=== PATIENT | female | born 1960 | race Caucasian/White ===

== ENCOUNTER 2017-07-23 13:07 | Inpatient (IN) | payer OTHER ==
[2017-07-23] MEDS ORDERED: methylPREDNISolone SOD SUCCI 125 MG/2 ML VIAL IV STA (13:32)
[2017-07-23] MEDS ORDERED: IPRATROPIUM-ALBUTEROL 3 ML NEB INHALATION STA (13:32)
--- NOTE | 2017-07-23 13:34 | ED ---
General Adult HPI - General Chief complaint: Shortness of Breath Stated complaint: congestion/SOB Time Seen by Provider: 07/23/17 13:27 Source: patient, RN notes reviewed Mode of arrival: wheelchair Limitations: no limitations - History of Present Illness Initial comments: Patient is a pleasant 57-year-old female presenting to the emergency Department with cough and difficulty breathing. Symptoms have been present over the past week. Patient does have chronic COPD as well. Patient does have a cough and has had productive yellow sputum however that has dried up. Patient does have congestion still. Patient has nasal congestion as well. Patient did have low- grade fever a few days ago. No leg pain or leg swelling. No chest pain - Related Data Home Medications Medication Instructions Recorded Confirmed Albuterol Nebulized [Ventolin 1 inh INHALATION DAILY 07/23/17 07/23/17 Nebulized] Budesonide-Formot 160-4.5 Mcg 1 puff INHALATION DAILY 07/23/17 07/23/17 [Symbicort 160-4.5 Mcg Inhaler] Montelukast [Singulair] 1 tab PO DAILY 07/23/17 07/23/17 Allergies Allergy/AdvReac Type Severity Reaction Status Date / Time No Known Allergies Allergy Verified 07/23/17 13:09 Review of Systems ROS Statement: Those systems with pertinent positive or pertinent negative responses have been documented in the HPI. ROS Other: All systems not noted in ROS Statement are negative. Constitutional: Reports: fever Eyes: Denies: eye pain ENT: Reports: congestion. Denies: ear pain Respiratory: Reports: cough, dyspnea Cardiovascular: Denies: chest pain Endocrine: Denies: fatigue Gastrointestinal: Denies: abdominal pain Genitourinary: Denies: dysuria Musculoskeletal: Denies: back pain Skin: Denies: rash Neurological: Denies: weakness Past Medical History Past Medical History: COPD History of Any Multi-Drug Resistant Organisms: None Reported Past Surgical History: Breast Surgery, Tonsillectomy, Tubal Ligation Past Psychological History: No Psychological Hx Reported Smoking Status: Current some day smoker Past Alcohol Use History: Rare Past Drug Use History: None Reported General Exam Limitations: no limitations General appearance: alert Head exam: Present: atraumatic Eye exam: Present: normal appearance, PERRL ENT exam: Present: normal oropharynx Neck exam: Present: normal inspection Respiratory exam: Present: wheezes Cardiovascular Exam: Present: regular rate, normal rhythm GI/Abdominal exam: Present: soft. Absent: tenderness Extremities exam: Present: normal inspection. Absent: pedal edema, calf tenderness Neurological exam: Present: alert Psychiatric exam: Present: normal affect, normal mood Skin exam: Present: normal color Course Vital Signs 07/23/17 07/23/17 07/23/17 13:09 13:37 13:46 Temperature 98.2 F Pulse Rate 84 88 84 Respiratory 20 Rate Blood Pressure 125/87 O2 Sat by Pulse 85 L Oximetry - Reevaluation(s) Reevaluation #1: 07/23/17 13:45 Patient states she no longer sees Dr. Marmolejo. Patient states her pulmonary now is Dr. Thorpe's. EKG Findings - EKG Comments: EKG Findings:: Normal sinus rhythm at 71. UT 1:30. QRS 84. QT 400. QTc 434. Right axis. Low QRS voltage. No acute ST change. Medical Decision Making - Medical Decision Making Patient reexamined and slightly improved. Patient is updated on results and plan. Dr. Mcfarland has been paged for admission. Patient does not meet Sirs criteria and does not meet criteria for sepsis on admission. - Lab Data Result diagrams: 07/23/17 13:50 07/23/17 13:50 Lab Results 07/23/17 07/23/17 07/23/17 Range/Units 13:50 13:50 13:50 WBC 9.7 (3.8-10.6) k/uL RBC 4.59 (3.80-5.40) m/uL Hgb 14.1 (11.4-16.0) gm/dL Hct 45.0 (34.0-46.0) % MCV 98.1 (80.0-100.0) fL MCH 30.7 (25.0-35.0) pg MCHC 31.3 (31.0-37.0) g/dL RDW 14.1 (11.5-15.5) % Plt Count 277 (150-450) k/uL Neutrophils % 92 % Lymphocytes % 6 % Monocytes % 1 % Eosinophils % 0 % Basophils % 0 % Neutrophils # 8.9 H (1.3-7.7) k/uL Lymphocytes # 0.5 L (1.0-4.8) k/uL Monocytes # 0.1 (0-1.0) k/uL Eosinophils # 0.0 (0-0.7) k/uL Basophils # 0.0 (0-0.2) k/uL PT 10.6 (9.0-12.0) sec INR 1.0 (<1.2) APTT 23.8 (22.0-30.0) sec Sodium 136 L (137-145) mmol/L Potassium 4.4 (3.5-5.1) mmol/L Chloride 99 (98-107) mmol/L Carbon Dioxide 31 H (22-30) mmol/L Anion Gap 6 mmol/L BUN 14 (7-17) mg/dL Creatinine 0.48 L (0.52-1.04) mg/dL Est GFR (MDRD) Af Amer >60 (>60 ml/min/1.73 sqM) Est GFR (MDRD) Non-Af >60 (>60 ml/min/1.73 sqM) Glucose 148 H (74-99) mg/dL Calcium 9.1 (8.4-10.2) mg/dL Total Bilirubin 0.2 (0.2-1.3) mg/dL AST 19 (14-36) U/L ALT 33 (9-52) U/L Alkaline Phosphatase 91 (38-126) U/L Total Protein 7.0 (6.3-8.2) g/dL Albumin 3.7 (3.5-5.0) g/dL - Radiology Data Radiology results: image reviewed (Chest x-ray does show patchy right lower lobe infiltrate.) Disposition Clinical Impression: Acute exacerbation of chronic obstructive airways disease, Pneumonia Disposition: ADMITTED IP TO THIS [facility] Referrals: Booker Pierson DO [Primary Care Provider] - 1-2 days Decision Time: 14:28
[2017-07-23 14:08] LABS: Basophils % (A) 0 %; CH 30.6; CHCM 31.4; Eosinophils % (A) 0 %; HDW 2.21; HGB 14.1 gm/dL (11.4-16.0); Luc # (Auto) 0.09; Luc % (Auto) 1; Lymphocytes # (A) 0.5 k/uL (1.0-4.8); Lymphocytes % (A) 6 %; MCH 30.7 pg (25.0-35.0); MCHC 31.3 g/dL (31.0-37.0); MCV 98.1 fL (80.0-100.0); Mean Platelet Volume 7.5; Monocytes # (A) 0.1 k/uL (0-1.0); Monocytes % (A) 1 %; Neutrophils # (A) 8.9 k/uL (1.3-7.7); Neutrophils % (A) 92 %; RBC 4.59 m/uL (3.80-5.40); RDW 14.1 % (11.5-15.5); WBC 9.7 k/uL (3.8-10.6); WBC (Perox) 10.27
[2017-07-23 14:17] LABS: Partial Thromboplastin Time 23.8 sec (22.0-30.0); Prothrombin Time 10.6 sec (9.0-12.0)
[2017-07-23 14:19] LABS: ALT 33 U/L (9-52); AST 19 U/L (14-36); Alkaline Phosphatase 91 U/L (38-126); Anion Gap 6 mmol/L; Blood Urea Nitrogen 14 mg/dL (7-17); Calcium 9.1 mg/dL (8.4-10.2); Carbon Dioxide 31 mmol/L (22-30); Chloride 99 mmol/L (98-107); Glucose 148 mg/dL (74-99); Non-African American GFR(MDRD) >60 (>60 ml/min/1.73 sqM); Potassium 4.4 mmol/L (3.5-5.1); Sodium 136 mmol/L (137-145); Total Bilirubin 0.2 mg/dL (0.2-1.3)
--- NOTE | 2017-07-23 14:22 | XR ---
EXAMINATION TYPE: XR chest 2V DATE OF EXAM: 07/23/2017 COMPARISON: NONE HISTORY: Shortness of breath TECHNIQUE: Frontal and lateral views of the chest are obtained. FINDINGS: Scattered senescent parenchymal changes noted. Hyperinflation compatible with COPD. Patchy right lower lobe infiltrate. Small bilateral pleural effusions. Heart size is stable. Pulmonary venous congestion without overt failure. Mediastinal structures are stable and grossly unremarkable. No evidence for hilar prominence. Degenerative changes dorsal spine. IMPRESSION: 1. Patchy right lower lobe infiltrate. Small bilateral pleural effusions.
[2017-07-23] MEDS ORDERED: PNEUMONIA PROTOCOL UTILIZED 1 EACH MISC PO PRN (14:28)
[2017-07-23] MEDS ORDERED: cefTRIAXone IN SWFI 1,000 MG/10 ML SYRINGE IVP STA (14:28)
[2017-07-23] MEDS ORDERED: AZITHROMYCIN 500 MG in SODIUM CHLORIDE 0.9% 250 ML IVPB STA (14:28)
[2017-07-23 14:30] LABS: Creatine Kinase 33 U/L (30-135)
[2017-07-23 14:44] LABS: Creatine Kinase MB 1.2 ng/mL (0.0-2.4); Troponin I <0.012 ng/mL (0.000-0.034)
[2017-07-23] MEDS: SODIUM CHLORIDE 0.9% 1,000 ML IV SCH (15:00)
[2017-07-23] MEDS: IPRATROPIUM-ALBUTEROL 3 ML NEB INHALATION SCH ×2 (15:09→21:27)
[2017-07-23 17:21] LABS: Glucose,Whole Blood 201 mg/dL (75-99)
[2017-07-23] MEDS: INSULIN LISPRO (humaLOG) 300 UNIT/3 ML VIAL SQ SCH ×2 (17:27→20:43)
[2017-07-23] MEDS: methylPREDNISolone SOD SUCCI 125 MG/2 ML VIAL IV SCH ×2 (17:27→23:13)
[2017-07-23] MEDS: HEPARIN SODIUM,PORCINE 5,000 UNIT/ML 1 ML VIAL SQ SCH (20:44)
[2017-07-23 20:45] LABS: Glucose,Whole Blood 118 mg/dL (75-99)
[2017-07-23] MEDS: MONTELUKAST 10 MG TAB PO SCH (20:45)
--- NOTE | 2017-07-23 21:46 | P.HPIM ---
History of Present Illness H&P Date: 07/23/17 Chief Complaint: Shortness of breath Patient is a 57-year-old female with a known history of COPD and active smoking trying to quit presenting to the emergency Department with cough and difficulty breathing. Symptoms have been present over the past week. Patient went to her primary care physician and was placed on antibiotics and prednisone since last Sunday. The garcía did not feel better. Patient went to her PCPs office today and was told to come to hospital due to worsening short of breath. Patient does have a cough and has had productive yellow sputum however that has dried up. Patient has nasal congestion as well. Patient did have low-grade fever a few days ago. No leg pain or leg swelling. No chest pain. Patient's chest x-ray showed right lower lobe infiltrate. Review of Systems Constitutional: Patient denies any fever or chills . generalized weakness and no weight loss. Abdomen: Patient denied nausea vomiting and diarrhea and abdominal pain. Cardiovascular: Patient denies any chest pain . no palpitations. Respiratory: Patient does have cough is from production and shortness of breath.. Neurologic: Patient denied any numbness or tingling headache. Musculoskeletal: Patient denies any complaints of joint swelling or deformity. Skin: Negative Psychiatric: Negative Endocrine: No heat or cold intolerance. No recent weight gain. Genitourinary: No dysuria or hematuria. All other 14 point ROS negative except the above Past Medical History Past Medical History: COPD History of Any Multi-Drug Resistant Organisms: None Reported Past Surgical History: Breast Surgery, Tonsillectomy, Tubal Ligation Past Psychological History: No Psychological Hx Reported Smoking Status: Current some day smoker Past Alcohol Use History: Rare Past Drug Use History: None Reported - Past Family History Mother Family Medical History: Osteoarthritis (OA) Father Family Medical History: Cancer, Congestive Heart Failure (CHF), Hypertension Additional Family Medical History / Comment(s): stomach cancer, Medications and Allergies Home Medications Medication Instructions Recorded Confirmed Type Azithromycin [Zithromax Z-pack] See Taper PO DAILY 07/23/17 07/23/17 History Budesonide-Formot 160-4.5 Mcg 2 puff INHALATION RT-BID 07/23/17 07/23/17 History [Symbicort 160-4.5 Mcg Inhaler] Ipratropium-Albuterol Nebulize 3 ml PO RT-QID 07/23/17 07/23/17 History [Duoneb 0.5 mg-3 mg/3 ml Soln] Montelukast [Singulair] 10 mg PO HS 07/23/17 07/23/17 History Umeclidinium [place] [Incruse 1 puff INHALATION RT-DAILY 07/23/17 07/23/17 History Ellipta] predniSONE See Taper PO DAILY 07/23/17 07/23/17 History Allergies Allergy/AdvReac Type Severity Reaction Status Date / Time No Known Allergies Allergy Verified 07/23/17 14:28 Physical Exam Vitals: Vital Signs Temp Pulse Resp BP Pulse Ox 07/23/17 15:09 68 07/23/17 14:56 98.7 F 71 16 122/73 92 L 07/23/17 13:46 84 07/23/17 13:37 88 07/23/17 13:09 98.2 F 84 20 125/87 85 L Intake and Output 07/23/17 07/23/17 07/23/17 06:59 14:59 22:59 Other: Weight 72.575 kg Patient Weight 07/24/17 06:59 Weight 72.575 kg PHYSICAL EXAMINATION: Patient is lying in the bed comfortably, no acute distress, awake alert and oriented.. HEENT: Normocephalic. Neck is supple. Pupils reactive. Nostrils clear. Oral cavity is moist. Ears reveal no drainage. Neck reveals no JVD, carotid bruits, or thyromegaly. CHEST EXAMINATION: Trachea is central. Symmetrical expansion. Bilateral diffuse rhonchi and wheezing positive CARDIAC: Normal S1, S2 with no gallops. No murmurs ABDOMEN: Soft. Bowel sounds normal. No organomegaly. No abdominal bruits. Extremities: reveal no edema. No clubbing or cyanosis Neurologically awake, alert, oriented x3 with well-coordinated movements. No focal deficits noted Skin: No rash or skin lesions. Psychiatric: Cooperative. Nonsuicidal Musculoskeletal: No joint swelling or deformity. Normal range of motion. Results CBC & Chem 7: 07/23/17 13:50 07/23/17 13:50 Labs: Abnormal Lab Results - Last 24 Hours (Table) 07/23/17 07/23/17 Range/Units 13:50 13:50 Neutrophils # 8.9 H (1.3-7.7) k/uL Lymphocytes # 0.5 L (1.0-4.8) k/uL Sodium 136 L (137-145) mmol/L Carbon Dioxide 31 H (22-30) mmol/L Creatinine 0.48 L (0.52-1.04) mg/dL Glucose 148 H (74-99) mg/dL Thrombosis Risk Factor Assmnt - DVT/VTE Prophylaxis DVT/VTE Prophylaxis: Pharmacologic Prophylaxis ordered Assessment and Plan Assessment: #1 acute COPD exacerbation #2 right lower lobe pneumonia failed outpatient therapy #3 active smoking DVT prophylaxis Plan: Patient will be continued on antibiotics ceftriaxone and azithromycin. We will continue the steroids and breathing treatments and follow closely. Further recommendations based on the clinical course.
[2017-07-24] MEDS: SODIUM CHLORIDE 0.9% 1,000 ML IV SCH ×3 (04:34→20:15)
[2017-07-24] MEDS: methylPREDNISolone SOD SUCCI 125 MG/2 ML VIAL IV SCH ×4 (05:56→22:58)
[2017-07-24] MEDS: IPRATROPIUM-ALBUTEROL 3 ML NEB INHALATION SCH ×4 (07:13→19:29)
[2017-07-24 07:39] LABS: Glucose,Whole Blood 118 mg/dL (75-99)
[2017-07-24] MEDS ORDERED: NON-FORMULARY DRUG (Umeclidinium Bromide [Incruse Ellipta] 1 PUFF) INHALATION SCH (08:00)
[2017-07-24] MEDS: AZITHROMYCIN 500 MG TAB PO SCH (08:02)
[2017-07-24] MEDS: cefTRIAXone IN SWFI 1,000 MG/10 ML SYRINGE IVP SCH (08:02)
[2017-07-24] MEDS: INSULIN LISPRO (humaLOG) 300 UNIT/3 ML VIAL SQ SCH ×4 (08:02→20:05)
[2017-07-24] MEDS: HEPARIN SODIUM,PORCINE 5,000 UNIT/ML 1 ML VIAL SQ SCH ×3 (08:03→22:59)
--- NOTE | 2017-07-24 08:04 | XR ---
EXAMINATION TYPE: XR chest 2V DATE OF EXAM: 07/24/2017 COMPARISON: 07/23/2017 HISTORY: 57-year-old female with and shortness of breath, pneumonia TECHNIQUE: Frontal and lateral views FINDINGS: Heart is normal size. Aorta and pulmonary vasculature within normal limits. There is worsening airspa ce disease in the basilar left lower lobe. No significant pleural effusion. IMPRESSION: Worsening basilar right lower lobe pneumonia.
[2017-07-24 08:26] LABS: Basophils % (A) 0 %; CH 30.8; CHCM 30.6; Eosinophils % (A) 0 %; HCT 44.5 % (34.0-46.0); HDW 2.18; HGB 13.8 gm/dL (11.4-16.0); Hypochromasia Slight; Luc # (Auto) 0.09; Luc % (Auto) 1; Lymphocytes # (A) 0.8 k/uL (1.0-4.8); Lymphocytes % (A) 12 %; MCH 31.3 pg (25.0-35.0); Macrocytosis Slight; Mean Platelet Volume 7.6; Monocytes # (A) 0.2 k/uL (0-1.0); Monocytes % (A) 3 %; Neutrophils # (A) 5.8 k/uL (1.3-7.7); Neutrophils % (A) 84 %; RBC 4.41 m/uL (3.80-5.40); RDW 14.5 % (11.5-15.5); WBC 6.9 k/uL (3.8-10.6); WBC (Perox) 6.84
[2017-07-24 08:47] LABS: Anion Gap 5 mmol/L; Blood Urea Nitrogen 12 mg/dL (7-17); Calcium 8.9 mg/dL (8.4-10.2); Carbon Dioxide 34 mmol/L (22-30); Chloride 101 mmol/L (98-107); Glucose 128 mg/dL (74-99); Non-African American GFR(MDRD) >60 (>60 ml/min/1.73 sqM); Potassium 5.1 mmol/L (3.5-5.1); Sodium 140 mmol/L (137-145)
--- NOTE | 2017-07-24 10:51 | P.CNPUL ---
History of Present Illness Consult date: 07/24/17 Reason for consult: dyspnea, cough Chief complaint: Cough, shortness of breath History of present illness: This is a 57-year-old female who is known to [facility]. The patient states she has shortness of breath and coughing which began several days ago. The patient states her mom was sick with a cold. She states she was producing a copious amount of phlegm however, now it is only when she lays down flat. She is complaining of sinus congestion. She denies fevers at home. She does state that she gets hot occasionally. She is complaining of feeling very short of breath. She is a current smoker. She smokes less than a half a pack per day. She does wear oxygen at night. She was using Symbicort, Incruse, duo nebs , Ventolin, Singulair at home. Review of Systems All systems: negative Past Medical History Past Medical History: COPD Additional Past Medical History / Comment(s): hiatal hernia History of Any Multi-Drug Resistant Organisms: None Reported Past Surgical History: Breast Surgery, Tonsillectomy, Tubal Ligation Additional Past Surgical History / Comment(s): breast augmentation, colonoscopy/ polypectomt-benign Past Anesthesia/Blood Transfusion Reactions: No Reported Reaction Past Psychological History: No Psychological Hx Reported Smoking Status: Current some day smoker Past Alcohol Use History: Rare Past Drug Use History: None Reported - Past Family History Mother Family Medical History: Osteoarthritis (OA) Father Family Medical History: Cancer, Congestive Heart Failure (CHF), Hypertension Additional Family Medical History / Comment(s): stomach cancer, Medications and Allergies Home Medications Medication Instructions Recorded Confirmed Type Azithromycin [Zithromax Z-pack] See Taper PO DAILY 07/23/17 07/23/17 History Budesonide-Formot 160-4.5 Mcg 2 puff INHALATION RT-BID 07/23/17 07/23/17 History [Symbicort 160-4.5 Mcg Inhaler] Ipratropium-Albuterol Nebulize 3 ml PO RT-QID 07/23/17 07/23/17 History [Duoneb 0.5 mg-3 mg/3 ml Soln] Montelukast [Singulair] 10 mg PO HS 07/23/17 07/23/17 History Umeclidinium [place] [Incruse 1 puff INHALATION RT-DAILY 07/23/17 07/23/17 History Ellipta] predniSONE See Taper PO DAILY 07/23/17 07/23/17 History Allergies Allergy/AdvReac Type Severity Reaction Status Date / Time No Known Allergies Allergy Verified 07/23/17 14:28 Physical Exam Osteopathic Statement: *. No significant issues noted on an osteopathic structural exam other than those noted in the History and Physical/Consult. Vitals: Vital Signs Temp Pulse Pulse Resp BP BP BP 07/24/17 07:24 64 07/24/17 07:14 60 07/24/17 07:00 97.7 F 61 16 119/68 07/23/17 23:00 97.1 F L 66 18 106/67 07/23/17 21:37 76 07/23/17 21:27 72 07/23/17 15:28 72 07/23/17 15:09 68 07/23/17 14:56 98.7 F 71 16 122/73 07/23/17 13:46 84 07/23/17 13:37 88 07/23/17 13:09 98.2 F 84 20 125/87 Pulse Ox 07/24/17 07:24 07/24/17 07:14 07/24/17 07:00 90 L 07/23/17 23:00 90 L 07/23/17 21:37 07/23/17 21:27 07/23/17 15:28 07/23/17 15:09 07/23/17 14:56 92 L 07/23/17 13:46 07/23/17 13:37 07/23/17 13:09 85 L Intake and Output 07/23/17 07/24/17 07/24/17 22:59 06:59 14:59 Other: Voiding Method Toilet # Voids 1 1 Gen.: Patient is alert and oriented 3, no acute distress Cardiovascular: Regular rate and rhythm, S1/S2 Lungs: Coarse breath sounds bilaterally with diffuse expiratory wheezing Abdomen: Soft nontender nondistended positive bowel sounds Extremities: No edema Results - Laboratory Findings CBC and BMP: 07/24/17 07:36 07/24/17 07:36 PT/INR, D-dimer PT 10.6 sec (9.0-12.0) 07/23/17 13:50 INR 1.0 (<1.2) 07/23/17 13:50 Abnormal lab findings: Abnormal Labs 07/23/17 07/23/17 07/23/17 13:50 13:50 17:19 MCV Neutrophils # 8.9 H Lymphocytes # 0.5 L Sodium 136 L Carbon Dioxide 31 H Creatinine 0.48 L Glucose 148 H POC Glucose (mg/dL) 201 H 07/23/17 07/24/17 07/24/17 20:42 07:29 07:36 MCV 101.0 H Neutrophils # Lymphocytes # 0.8 L Sodium Carbon Dioxide Creatinine Glucose POC Glucose (mg/dL) 118 H 118 H 07/24/17 07:36 MCV Neutrophils # Lymphocytes # Sodium Carbon Dioxide 34 H Creatinine 0.48 L Glucose 128 H POC Glucose (mg/dL) - Diagnostic Findings Chest x-ray: report reviewed, image reviewed Assessment and Plan Assessment: Acute on chronic hypoxic respiratory failure Acute exacerbation of COPD, very severe Right lower lobe community-acquired pneumonia Active tobacco abuse Hyperglycemia Chronic cor pulmonale Obesity Diastolic CHF Pulmonary hypertension O2 to maintain saturation greater than or equal to 90% IV Solu-Medrol Antibiotics: Azithromycin and Rocephin Duo nebs Pulmicort Sputum culture Check influenza, Legionella, mycoplasma Smoking cessation is highly recommended Insulin sliding scale Gentle hydration Flonase Mucinex Singulair Incentive spirometry and pulmonary hygiene GI and DVT prophylaxis Thank you for this consultation we'll continue to follow along
[2017-07-24 11:59] LABS: Glucose,Whole Blood 98 mg/dL (75-99)
[2017-07-24 17:20] LABS: Glucose,Whole Blood 128 mg/dL (75-99)
[2017-07-24] MEDS: BUDESONIDE 0.5 MG/2 ML NEBU INHALATION SCH (19:29)
[2017-07-24] MEDS: MONTELUKAST 10 MG TAB PO SCH (20:05)
[2017-07-24] MEDS: FLUTICASONE 50MCG/SPRAY NASAL 16GM EA NOSTRIL SCH (20:08)
[2017-07-24] MEDS: guaiFENesin 600 MG TABLET.ER PO SCH (20:08)
[2017-07-24 20:22] LABS: Glucose,Whole Blood 157 mg/dL (75-99)
[2017-07-25] MEDS: IPRATROPIUM-ALBUTEROL 3 ML NEB INHALATION PRN ×2 (03:35→23:41)
[2017-07-25 05:26] LABS: Mycoplasma IgG Antibody (EIA) 1.38 INDEX (<=0.90); Mycoplasma IgM Antibody 0.54 INDEX (<=0.90)
[2017-07-25] MEDS: methylPREDNISolone SOD SUCCI 125 MG/2 ML VIAL IV SCH ×4 (05:30→23:29)
[2017-07-25] MEDS: SODIUM CHLORIDE 0.9% 1,000 ML IV SCH ×2 (05:31→17:20)
[2017-07-25 07:04] LABS: Glucose,Whole Blood 117 mg/dL (75-99)
[2017-07-25] MEDS: IPRATROPIUM-ALBUTEROL 3 ML NEB INHALATION SCH ×4 (07:17→19:37)
[2017-07-25] MEDS: BUDESONIDE 0.5 MG/2 ML NEBU INHALATION SCH ×2 (07:17→19:37)
[2017-07-25] MEDS: INSULIN LISPRO (humaLOG) 300 UNIT/3 ML VIAL SQ SCH ×2 (07:48→12:33)
[2017-07-25] MEDS: AZITHROMYCIN 500 MG TAB PO SCH (08:05)
[2017-07-25] MEDS: cefTRIAXone IN SWFI 1,000 MG/10 ML SYRINGE IVP SCH (08:05)
[2017-07-25] MEDS: FAMOTIDINE 20 MG TAB PO SCH (08:05)
[2017-07-25] MEDS: guaiFENesin 600 MG TABLET.ER PO SCH ×2 (08:05→20:48)
[2017-07-25] MEDS: HEPARIN SODIUM,PORCINE 5,000 UNIT/ML 1 ML VIAL SQ SCH ×3 (08:06→23:29)
[2017-07-25] MEDS ORDERED: FLUTICASONE 50MCG/SPRAY NASAL 16GM EA NOSTRIL SCH (09:00)
--- NOTE | 2017-07-25 10:16 | P.PN ---
Subjective Progress Note Date: 07/25/17 Principal diagnosis: CAP, AECOPD Patient seen and examined. Patient states she is still not feeling better. She still having shortness of breath. She states she is having trouble breathing especially with exertion. She is coughing up some phlegm. She denies fevers and chills. Objective - Vital Signs Vital signs: Vital Signs Temp 96.9 F L 07/25/17 07:00 Pulse 60 07/25/17 07:33 Resp 18 07/25/17 07:00 BP 131/73 07/25/17 07:00 Pulse Ox 92 L 07/25/17 07:05 Intake & Output 07/24/17 07/25/17 07/25/17 18:59 06:59 18:59 Other: Voiding Method Toilet # Voids 8 3 # Bowel Movements 1 - Exam Gen.: Patient is alert and oriented 3, no acute distress Cardiovascular: Regular rate and rhythm, S1/S2 Lungs: Coarse breath sounds bilaterally with diffuse expiratory wheezing Abdomen: Soft nontender nondistended positive bowel sounds Extremities: No edema - Labs CBC & Chem 7: 07/24/17 07:36 07/24/17 07:36 Labs: Abnormal Lab Results - Last 24 Hours (Table) 07/24/17 07/24/17 07/24/17 Range/Units 07:36 07:36 17:18 POC Glucose (mg/dL) 128 H (75-99) mg/dL Hemoglobin A1c 6.5 H (4.0-6.0) % Mycoplasma pneumon IgG 1.38 H (<=0.90) INDEX 07/24/17 07/25/17 Range/Units 20:04 06:43 POC Glucose (mg/dL) 157 H 117 H (75-99) mg/dL Hemoglobin A1c (4.0-6.0) % Mycoplasma pneumon IgG (<=0.90) INDEX Microbiology - Last 24 Hours (Table) 07/23/17 13:50 Blood Culture - Preliminary Blood No Growth after 24 hours Assessment and Plan Assessment: Acute on chronic hypoxic respiratory failure Acute exacerbation of COPD, very severe Right lower lobe community-acquired pneumonia Active tobacco abuse Hyperglycemia Chronic cor pulmonale Obesity Diastolic CHF Pulmonary hypertension O2 to maintain saturation greater than or equal to 90% IV Solu-Medrol Antibiotics: Azithromycin and Rocephin Duo nebs Pulmicort Sputum culture pending Pending Legionella, mycoplasma Influenza negative Smoking cessation is highly recommended Insulin sliding scale Gentle hydration Repeat CXR in AM Flutter tx Flonase Mucinex Singulair Incentive spirometry and pulmonary hygiene GI and DVT prophylaxis
[2017-07-25 12:31] LABS: Glucose,Whole Blood 92 mg/dL (75-99)
[2017-07-25 17:05] LABS: Glucose,Whole Blood 154 mg/dL (75-99)
[2017-07-25 17:23] LABS: Glucose,Whole Blood 135 mg/dL (75-99)
[2017-07-25] MEDS: INSULIN ASPART 100 UNIT/ML 1 ML 10 ML VIAL SQ SCH ×2 (17:26→20:48)
--- NOTE | 2017-07-25 17:51 | P.PN ---
Subjective Progress Note Date: 07/25/17 Progress note being dictated for Dr. Rudd Interval history:Patient is a 57-year-old female with a known history of COPD and active smoking trying to quit presenting to the emergency Department with cough and difficulty breathing. Symptoms have been present over the past week. Patient went to her primary care physician and was placed on antibiotics and prednisone since last Sunday. The garcía did not feel better. Patient went to her PCPs office today and was told to come to hospital due to worsening short of breath. Patient does have a cough and has had productive yellow sputum however that has dried up. Patient has nasal congestion as well. Patient did have low-grade fever a few days ago. No leg pain or leg swelling. No chest pain. Patient's chest x-ray showed right lower lobe infiltrate. 07/25/2017 P breathing slowly improved, loose nonproductive cough, occasional production of yellow sputum. Complains of exertional shortness of breath, uses bedside commode.Flutter valve ordered. Afebrile.Influenza negative. Objective - Vital Signs Vital signs: Vital Signs Temp 96.6 F L 07/25/17 15:00 Pulse 68 07/25/17 15:48 Resp 18 07/25/17 15:00 BP 125/70 07/25/17 15:00 Pulse Ox 96 07/25/17 15:00 Intake & Output 07/24/17 07/25/17 07/25/17 18:59 06:59 18:59 Other: Voiding Method Toilet # Voids 8 3 2 # Bowel Movements 1 1 - Exam Patient is lying in the bed comfortably, no acute distress, awake alert and oriented.. HEENT: Normocephalic. Neck is supple. Pupils reactive. Nostrils clear. Oral cavity is moist. Ears reveal no drainage. Neck reveals no JVD, carotid bruits, or thyromegaly. CHEST EXAMINATION: Trachea is central. Symmetrical expansion. Bilateral diffuse rhonchi and wheezing positive CARDIAC: Normal S1, S2 with no gallops. No murmurs ABDOMEN: Soft. Bowel sounds normal. No organomegaly. No abdominal bruits. Extremities: reveal no edema. No clubbing or cyanosis Neurologically awake, alert, oriented x3 with well-coordinated movements. No focal deficits noted Skin: No rash or skin lesions. Psychiatric: Cooperative. Nonsuicidal Musculoskeletal: No joint swelling or deformity. Normal range of motion. - Labs CBC & Chem 7: 07/24/17 07:36 07/24/17 07:36 Labs: Abnormal Lab Results - Last 24 Hours (Table) 07/24/17 07/24/17 07/24/17 Range/Units 07:36 07:36 20:04 POC Glucose (mg/dL) 157 H (75-99) mg/dL Hemoglobin A1c 6.5 H (4.0-6.0) % Mycoplasma pneumon IgG 1.38 H (<=0.90) INDEX 07/25/17 07/25/17 07/25/17 Range/Units 06:43 16:55 17:19 POC Glucose (mg/dL) 117 H 154 H 135 H (75-99) mg/dL Hemoglobin A1c (4.0-6.0) % Mycoplasma pneumon IgG (<=0.90) INDEX Microbiology - Last 24 Hours (Table) 07/23/17 13:50 Blood Culture - Preliminary Blood No Growth after 48 hours Assessment and Plan Assessment: #1 acute COPD exacerbation #2 right lower lobe pneumonia, community-acquired, failed outpatient therapy #3 active smoking DVT prophylaxis Plan: Patient will be continued on antibiotics; ceftriaxone and azithromycin, nebulized bronchodilators, IV steroids, monitoring and symptomatic treatment. Aggressive pulmonary toileting. Sputum culture pending. Mucinex added to med regime. Smoking cessation readdressed. Further recommendations based on the clinical course. The impression and plan of care has been dictated as directed. : I performed a history and examination of this patient, discussed the same with the dictator. I agree with the dictator's note ,documented as a scribe. Any additional findings or plans will be noted.
[2017-07-25] MEDS: MONTELUKAST 10 MG TAB PO SCH (20:48)
[2017-07-25] MEDS: FLUTICASONE 50MCG/SPRAY NASAL 16GM EA NOSTRIL SCH (20:48)
[2017-07-25 21:10] LABS: Glucose,Whole Blood 135 mg/dL (75-99)
[2017-07-26] MEDS ORDERED: FUROSEMIDE 10 MG/ML 2 ML VIAL IV ONE (00:37)
--- NOTE | 2017-07-26 00:39 | P.PN ---
Subjective Progress Note Date: 07/24/17 Principal diagnosis: Pneumonia Patient is a 57-year-old female with a known history of COPD and active smoking trying to quit presenting to the emergency Department with cough and difficulty breathing. Symptoms have been present over the past week. Patient went to her primary care physician and was placed on antibiotics and prednisone since last Sunday. The garcía did not feel better. Patient went to her PCPs office today and was told to come to hospital due to worsening short of breath. Patient does have a cough and has had productive yellow sputum however that has dried up. Patient has nasal congestion as well. Patient did have low-grade fever a few days ago. No leg pain or leg swelling. No chest pain. Patient's chest x-ray showed right lower lobe infiltrate. 07/24/2017 Patient continues to have shortness of breath. no fever no chills. No acute overnight issues. Current medications reviewed. Objective - Vital Signs Vital signs: Vital Signs Temp 97.0 F L 07/24/17 14:55 Pulse 78 07/24/17 19:44 Resp 13 07/24/17 14:55 BP 132/69 07/24/17 14:55 Pulse Ox 94 L 07/24/17 16:04 Intake & Output 07/24/17 07/24/17 07/25/17 06:59 18:59 06:59 Other: Voiding Method Toilet # Voids 1 8 1 # Bowel Movements 1 - Exam Patient is lying in the bed comfortably, no acute distress, awake alert and oriented.. HEENT: Normocephalic. Neck is supple. Pupils reactive. Nostrils clear. Oral cavity is moist. Ears reveal no drainage. Neck reveals no JVD, carotid bruits, or thyromegaly. CHEST EXAMINATION: Trachea is central. Symmetrical expansion. Bilateral diffuse rhonchi and wheezing positive CARDIAC: Normal S1, S2 with no gallops. No murmurs ABDOMEN: Soft. Bowel sounds normal. No organomegaly. No abdominal bruits. Extremities: reveal no edema. No clubbing or cyanosis Neurologically awake, alert, oriented x3 with well-coordinated movements. No focal deficits noted Skin: No rash or skin lesions. Psychiatric: Cooperative. Nonsuicidal Musculoskeletal: No joint swelling or deformity. Normal range of motion. - Labs CBC & Chem 7: 07/24/17 07:36 07/24/17 07:36 Labs: Abnormal Lab Results - Last 24 Hours (Table) 07/24/17 07/24/17 07/24/17 Range/Units 07:29 07:36 07:36 MCV 101.0 H (80.0-100.0) fL Lymphocytes # 0.8 L (1.0-4.8) k/uL Carbon Dioxide 34 H (22-30) mmol/L Creatinine 0.48 L (0.52-1.04) mg/dL Glucose 128 H (74-99) mg/dL POC Glucose (mg/dL) 118 H (75-99) mg/dL 07/24/17 07/24/17 Range/Units 17:18 20:04 MCV (80.0-100.0) fL Lymphocytes # (1.0-4.8) k/uL Carbon Dioxide (22-30) mmol/L Creatinine (0.52-1.04) mg/dL Glucose (74-99) mg/dL POC Glucose (mg/dL) 128 H 157 H (75-99) mg/dL Microbiology - Last 24 Hours (Table) 07/23/17 13:50 Blood Culture - Preliminary Blood No Growth after 24 hours 07/23/17 20:37 Gram Stain - Preliminary Sputum Assessment and Plan Assessment: #1 acute COPD exacerbation #2 right lower lobe pneumonia failed outpatient therapy #3 active smoking DVT prophylaxis Plan: Patient will be continued on antibiotics ceftriaxone and azithromycin. We will continue the steroids and breathing treatments and follow closely. Chest x-ray showing worsening pneumonia .will hold IV fluids and continue to follow closely. Pulmonary is following Further recommendations based on the clinical course.
[2017-07-26] MEDS: IPRATROPIUM-ALBUTEROL 3 ML NEB INHALATION PRN (03:23)
[2017-07-26] MEDS: methylPREDNISolone SOD SUCCI 125 MG/2 ML VIAL IV SCH ×2 (06:25→20:10)
[2017-07-26 07:13] LABS: Glucose,Whole Blood 134 mg/dL (75-99)
--- NOTE | 2017-07-26 07:14 | XR ---
EXAMINATION TYPE: XR chest 2V DATE OF EXAM: 07/26/2017 COMPARISON: Chest x-ray from 2 days ago. Older chest x-ray from 3 days ago. HISTORY: Cough and hypoxia. TECHNIQUE: Frontal and lateral views of the chest are obtained. FINDINGS: There is persistent right basilar opacity. There is no new focal air space opacity, pleura l effusion, or pneumothorax seen. The cardiac silhouette size is stable and mildly enlarged. The o sseous structures are intact. IMPRESSION: Persistent stable right basilar infiltrate, no new infiltrate is seen.
[2017-07-26] MEDS: BUDESONIDE 0.5 MG/2 ML NEBU INHALATION SCH ×2 (07:40→19:32)
[2017-07-26] MEDS: IPRATROPIUM-ALBUTEROL 3 ML NEB INHALATION SCH ×4 (07:41→19:32)
[2017-07-26 07:43] LABS: Basophils % (A) 0 %; CH 30.1; CHCM 30.6; Eosinophils % (A) 0 %; HCT 42.5 % (34.0-46.0); HGB 13.3 gm/dL (11.4-16.0); Hypochromasia Slight; Luc # (Auto) 0.07; Luc % (Auto) 1; Lymphocytes # (A) 0.8 k/uL (1.0-4.8); Lymphocytes % (A) 11 %; MCHC 31.3 g/dL (31.0-37.0); MCV 98.8 fL (80.0-100.0); Mean Platelet Volume 7.5; Monocytes # (A) 0.3 k/uL (0-1.0); Monocytes % (A) 4 %; Neutrophils # (A) 6.5 k/uL (1.3-7.7); Neutrophils % (A) 84 %; RDW 14.2 % (11.5-15.5); WBC 7.7 k/uL (3.8-10.6); WBC (Perox) 8.01
[2017-07-26] MEDS: FAMOTIDINE 20 MG TAB PO SCH (07:50)
[2017-07-26] MEDS: HEPARIN SODIUM,PORCINE 5,000 UNIT/ML 1 ML VIAL SQ SCH ×3 (07:50→23:59)
[2017-07-26] MEDS: guaiFENesin 600 MG TABLET.ER PO SCH ×2 (07:50→20:11)
[2017-07-26] MEDS: AZITHROMYCIN 500 MG TAB PO SCH (07:51)
[2017-07-26] MEDS: INSULIN ASPART 100 UNIT/ML 1 ML 10 ML VIAL SQ SCH ×4 (07:51→21:24)
[2017-07-26] MEDS: cefTRIAXone IN SWFI 1,000 MG/10 ML SYRINGE IVP SCH (07:51)
[2017-07-26 07:53] LABS: Anion Gap 4 mmol/L; Blood Urea Nitrogen 13 mg/dL (7-17); Calcium 8.8 mg/dL (8.4-10.2); Carbon Dioxide 38 mmol/L (22-30); Chloride 96 mmol/L (98-107); Glucose 130 mg/dL (74-99); Non-African American GFR(MDRD) >60 (>60 ml/min/1.73 sqM); Potassium 3.9 mmol/L (3.5-5.1); Sodium 138 mmol/L (137-145)
--- NOTE | 2017-07-26 09:31 | P.PN ---
Subjective Progress Note Date: 07/26/17 Principal diagnosis: CAP, AECOPD patient seen and examined. Patient states she is starting to feel better today. Her breathing is a little bit better. She is unable to bring up phlegm. She is using the flutter valve and it is helping. She denies fevers and chills. Objective - Vital Signs Vital signs: Vital Signs Temp 97.2 F L 07/26/17 07:00 Pulse 82 07/26/17 07:54 Resp 18 07/26/17 07:00 BP 122/64 07/26/17 07:00 Pulse Ox 95 07/26/17 07:41 Intake & Output 07/25/17 07/26/17 07/26/17 18:59 06:59 18:59 Intake Total 950 Balance 950 Intake: Oral 950 Other: Voiding Method Toilet # Voids 2 2 2 # Bowel Movements 1 - Exam Gen.: Patient is alert and oriented 3, no acute distress Cardiovascular: Regular rate and rhythm, S1/S2 Lungs: Coarse breath sounds bilaterally with diffuse expiratory wheezing - improving aeration Abdomen: Soft nontender nondistended positive bowel sounds Extremities: No edema - Labs CBC & Chem 7: 07/26/17 07:19 07/26/17 07:19 Labs: Abnormal Lab Results - Last 24 Hours (Table) 07/25/17 07/25/17 07/25/17 Range/Units 16:55 17:19 20:33 Lymphocytes # (1.0-4.8) k/uL Chloride (98-107) mmol/L Carbon Dioxide (22-30) mmol/L Creatinine (0.52-1.04) mg/dL Glucose (74-99) mg/dL POC Glucose (mg/dL) 154 H 135 H 135 H (75-99) mg/dL 07/26/17 07/26/17 07/26/17 Range/Units 07:10 07:19 07:19 Lymphocytes # 0.8 L (1.0-4.8) k/uL Chloride 96 L (98-107) mmol/L Carbon Dioxide 38 H (22-30) mmol/L Creatinine 0.50 L (0.52-1.04) mg/dL Glucose 130 H (74-99) mg/dL POC Glucose (mg/dL) 134 H (75-99) mg/dL Microbiology - Last 24 Hours (Table) 07/23/17 20:37 Gram Stain - Final Sputum Sputum Culture - Final 07/23/17 13:50 Blood Culture - Preliminary Blood No Growth after 48 hours Assessment and Plan Assessment: Acute on chronic hypoxic respiratory failure Acute exacerbation of COPD, very severe Right lower lobe community-acquired pneumonia Active tobacco abuse Hyperglycemia Chronic cor pulmonale Obesity Diastolic CHF Pulmonary hypertension O2 to maintain saturation greater than or equal to 90% IV Solu-Medrol Antibiotics: Azithromycin and Rocephin Duo nebs Pulmicort Sputum culture: normal bharti Pending Legionella Negative mycoplasma Influenza negative Smoking cessation is highly recommended Insulin sliding scale Gentle hydration Flutter tx Flonase Mucinex Singulair Incentive spirometry and pulmonary hygiene GI and DVT prophylaxis
[2017-07-26 12:17] LABS: Glucose,Whole Blood 110 mg/dL (75-99)
[2017-07-26 17:05] LABS: Glucose,Whole Blood 107 mg/dL (75-99)
[2017-07-26] MEDS: FLUTICASONE 50MCG/SPRAY NASAL 16GM EA NOSTRIL SCH (20:10)
[2017-07-26] MEDS: MONTELUKAST 10 MG TAB PO SCH (20:11)
[2017-07-26 20:49] LABS: Glucose,Whole Blood 97 mg/dL (75-99)
[2017-07-27] MEDS: IPRATROPIUM-ALBUTEROL 3 ML NEB INHALATION PRN ×2 (00:05→05:29)
[2017-07-27 07:35] LABS: Glucose,Whole Blood 105 mg/dL (75-99)
[2017-07-27] MEDS: INSULIN ASPART 100 UNIT/ML 1 ML 10 ML VIAL SQ SCH ×4 (07:38→21:46)
[2017-07-27] MEDS: methylPREDNISolone SOD SUCCI 125 MG/2 ML VIAL IV SCH (08:05)
[2017-07-27] MEDS: FAMOTIDINE 20 MG TAB PO SCH (08:05)
[2017-07-27] MEDS: HEPARIN SODIUM,PORCINE 5,000 UNIT/ML 1 ML VIAL SQ SCH ×2 (08:05→15:34)
[2017-07-27] MEDS: AZITHROMYCIN 500 MG TAB PO SCH (08:05)
[2017-07-27] MEDS: cefTRIAXone IN SWFI 1,000 MG/10 ML SYRINGE IVP SCH (08:05)
[2017-07-27] MEDS: guaiFENesin 600 MG TABLET.ER PO SCH ×2 (08:05→21:45)
[2017-07-27] MEDS: BUDESONIDE 0.5 MG/2 ML NEBU INHALATION SCH ×2 (08:16→20:30)
[2017-07-27] MEDS: IPRATROPIUM-ALBUTEROL 3 ML NEB INHALATION SCH ×4 (08:16→20:31)
[2017-07-27 08:31] LABS: Basophils % (A) 0 %; CH 30.9; CHCM 30.5; Eosinophils % (A) 0 %; HCT 44.5 % (34.0-46.0); HDW 2.24; HGB 13.7 gm/dL (11.4-16.0); Hypochromasia Slight; Luc # (Auto) 0.08; Luc % (Auto) 1; Lymphocytes # (A) 1.1 k/uL (1.0-4.8); Lymphocytes % (A) 14 %; MCH 31.3 pg (25.0-35.0); MCHC 30.8 g/dL (31.0-37.0); MCV 101.9 fL (80.0-100.0); Macrocytosis Slight; Monocytes # (A) 0.5 k/uL (0-1.0); Monocytes % (A) 6 %; Neutrophils % (A) 78 %; RBC 4.36 m/uL (3.80-5.40); WBC 7.7 k/uL (3.8-10.6); WBC (Perox) 7.99
[2017-07-27 08:46] LABS: Anion Gap 5 mmol/L; Blood Urea Nitrogen 14 mg/dL (7-17); Calcium 8.9 mg/dL (8.4-10.2); Carbon Dioxide 38 mmol/L (22-30); Chloride 95 mmol/L (98-107); Glucose 179 mg/dL (74-99); Non-African American GFR(MDRD) >60 (>60 ml/min/1.73 sqM); Potassium 4.3 mmol/L (3.5-5.1); Sodium 138 mmol/L (137-145)
[2017-07-27 11:56] LABS: Glucose,Whole Blood 83 mg/dL (75-99)
--- NOTE | 2017-07-27 14:25 | P.PN ---
Subjective Progress Note Date: 07/27/17 Principal diagnosis: AECOPD Patient seen and examined. Patient states her breathing is starting to get better. She is wondering when she can go home. She still has a cough and wheezing. She is still on 5 L high flow nasal cannula. Objective - Vital Signs Vital signs: Vital Signs Temp 97.4 F L 07/27/17 07:00 Pulse 60 07/27/17 11:53 Resp 16 07/27/17 07:00 BP 108/67 07/27/17 07:00 Pulse Ox 93 L 07/27/17 07:00 Intake & Output 07/26/17 07/27/17 07/27/17 18:59 06:59 18:59 Intake Total 100 Balance 100 Intake: Oral 100 Other: Voiding Method Toilet Toilet # Voids 2 2 3 # Bowel Movements 1 - Exam Gen.: Patient is alert and oriented 3, no acute distress Cardiovascular: Regular rate and rhythm, S1/S2 Lungs: Coarse breath sounds bilaterally with diffuse expiratory wheezing - improving aeration Abdomen: Soft nontender nondistended positive bowel sounds Extremities: No edema - Labs CBC & Chem 7: 07/27/17 08:13 07/27/17 08:13 Labs: Abnormal Lab Results - Last 24 Hours (Table) 07/26/17 07/27/17 07/27/17 Range/Units 16:48 07:11 08:13 MCV 101.9 H (80.0-100.0) fL MCHC 30.8 L (31.0-37.0) g/dL Chloride (98-107) mmol/L Carbon Dioxide (22-30) mmol/L Glucose (74-99) mg/dL POC Glucose (mg/dL) 107 H 105 H (75-99) mg/dL 07/27/17 Range/Units 08:13 MCV (80.0-100.0) fL MCHC (31.0-37.0) g/dL Chloride 95 L (98-107) mmol/L Carbon Dioxide 38 H (22-30) mmol/L Glucose 179 H (74-99) mg/dL POC Glucose (mg/dL) (75-99) mg/dL Microbiology - Last 24 Hours (Table) 07/23/17 13:50 Blood Culture - Preliminary Blood No Growth after 72 hours Assessment and Plan Assessment: Assessment and Plan Assessment: Acute on chronic hypoxic respiratory failure Acute exacerbation of COPD, very severe Right lower lobe community-acquired pneumonia Active tobacco abuse Hyperglycemia Chronic cor pulmonale Obesity Diastolic CHF Pulmonary hypertension O2 to maintain saturation greater than or equal to 90% Change to PO Prednisone Antibiotics: Azithromycin and Rocephin Duo nebs Pulmicort Sputum culture: normal bharti Pending Legionella Negative mycoplasma Influenza negative Smoking cessation is highly recommended Insulin sliding scale Gentle hydration Flutter tx Flonase Mucinex Singulair Incentive spirometry and pulmonary hygiene GI and DVT prophylaxis Anticipate patient will need 24-48 hours more hospitalization
[2017-07-27 16:59] LABS: Glucose,Whole Blood 140 mg/dL (75-99)
--- NOTE | 2017-07-27 17:22 | P.PN ---
Subjective Progress Note Date: 07/26/17 Progress note being dictated for Dr. Rudd Interval history:Patient is a 57-year-old female with a known history of COPD and active smoking trying to quit presenting to the emergency Department with cough and difficulty breathing. Symptoms have been present over the past week. Patient went to her primary care physician and was placed on antibiotics and prednisone since last Sunday. The garcía did not feel better. Patient went to her PCPs office today and was told to come to hospital due to worsening short of breath. Patient does have a cough and has had productive yellow sputum however that has dried up. Patient has nasal congestion as well. Patient did have low-grade fever a few days ago. No leg pain or leg swelling. No chest pain. Patient's chest x-ray showed right lower lobe infiltrate. 07/25/2017 P breathing slowly improved, loose nonproductive cough, occasional production of yellow sputum. Complains of exertional shortness of breath, uses bedside commode.Flutter valve ordered. Afebrile.Influenza negative. 07/26/2017. Breathing slowly improving, with less wheezing. Nonproductive cough. Requiring 5 L nasal cannula O2 to maintain O2 sats of mid 90s; usually wears 2-3 L at home. Chest x-ray reporting persistent stable right basilar infiltrate without new infiltrates.Sputum and blood cultures negative. Objective - Vital Signs Vital signs: Vital Signs Temp 97.5 F L 07/26/17 15:00 Pulse 62 07/26/17 15:52 Resp 16 07/26/17 15:00 BP 117/72 07/26/17 15:00 Pulse Ox 94 L 07/26/17 15:00 Intake & Output 07/25/17 07/26/17 07/26/17 18:59 06:59 18:59 Intake Total 950 Balance 950 Intake: Oral 950 Other: Voiding Method Toilet # Voids 2 2 2 # Bowel Movements 1 1 - Exam Patient sitting up in the bed comfortably, no acute distress, awake alert and oriented.. HEENT: Normocephalic. Neck is supple. Pupils reactive. Nostrils clear. Oral cavity is moist. Ears reveal no drainage. Neck reveals no JVD, carotid bruits, or thyromegaly. CHEST EXAMINATION: Trachea is central. Symmetrical expansion. Bilateral diffuse rhonchi and improving wheezing CARDIAC: Normal S1, S2 with no gallops. No murmurs ABDOMEN: Soft. Bowel sounds normal. No organomegaly. No abdominal bruits. Extremities: reveal no edema. No clubbing or cyanosis Neurologically awake, alert, oriented x3 with well-coordinated movements. No focal deficits noted Skin: No rash or skin lesions. Psychiatric: Cooperative. Nonsuicidal Musculoskeletal: No joint swelling or deformity. Normal range of motion. - Labs CBC & Chem 7: 07/27/17 08:13 07/27/17 08:13 Labs: Abnormal Lab Results - Last 24 Hours (Table) 07/25/17 07/26/17 07/26/17 Range/Units 20:33 07:10 07:19 Lymphocytes # 0.8 L (1.0-4.8) k/uL Chloride (98-107) mmol/L Carbon Dioxide (22-30) mmol/L Creatinine (0.52-1.04) mg/dL Glucose (74-99) mg/dL POC Glucose (mg/dL) 135 H 134 H (75-99) mg/dL 07/26/17 07/26/17 07/26/17 Range/Units 07:19 11:57 16:48 Lymphocytes # (1.0-4.8) k/uL Chloride 96 L (98-107) mmol/L Carbon Dioxide 38 H (22-30) mmol/L Creatinine 0.50 L (0.52-1.04) mg/dL Glucose 130 H (74-99) mg/dL POC Glucose (mg/dL) 110 H 107 H (75-99) mg/dL Microbiology - Last 24 Hours (Table) 07/23/17 13:50 Blood Culture - Preliminary Blood No Growth after 72 hours 07/23/17 20:37 Gram Stain - Final Sputum Sputum Culture - Final Assessment and Plan Assessment: #1 acute COPD exacerbation #2 right lower lobe pneumonia, community-acquired, failed outpatient therapy #3 active smoking DVT prophylaxis Plan: Patient will be continued on antibiotics; ceftriaxone and azithromycin, nebulized bronchodilators, IV steroids, monitoring and symptomatic treatment. Aggressive pulmonary toileting. Smoking cessation readdressed. Further recommendations based on the clinical course. Discharge planning in progress; reevaluate tomorrow, currently requiring 5 L nasal cannula O2, not near baseline. The impression and plan of care has been dictated as directed. : I performed a history and examination of this patient, discussed the same with the dictator. I agree with the dictator's note ,documented as a scribe. Any additional findings or plans will be noted.
--- NOTE | 2017-07-27 17:27 | P.PN ---
Subjective Progress Note Date: 07/27/17 Progress note being dictated for Dr. Rudd Interval history:Patient is a 57-year-old female with a known history of COPD and active smoking trying to quit presenting to the emergency Department with cough and difficulty breathing. Symptoms have been present over the past week. Patient went to her primary care physician and was placed on antibiotics and prednisone since last Sunday. The garcaí did not feel better. Patient went to her PCPs office today and was told to come to hospital due to worsening short of breath. Patient does have a cough and has had productive yellow sputum however that has dried up. Patient has nasal congestion as well. Patient did have low-grade fever a few days ago. No leg pain or leg swelling. No chest pain. Patient's chest x-ray showed right lower lobe infiltrate. 07/25/2017 P breathing slowly improved, loose nonproductive cough, occasional production of yellow sputum. Complains of exertional shortness of breath, uses bedside commode.Flutter valve ordered. Afebrile.Influenza negative. 07/26/2017. Breathing slowly improving, with less wheezing. Nonproductive cough. Requiring 5 L nasal cannula O2 to maintain O2 sats of mid 90s; usually wears 2-3 L at home. Chest x-ray reporting persistent stable right basilar infiltrate without new infiltrates.Sputum and blood cultures negative. 07/27/2017 breathing improving, less exertional shortness of breath; had been using bedside commode but now tolerating increased ambulation to and from bathroom. Continues to require 5 L nasal cannula O2 to maintain O2 sats in the low 90s. Wheezing persists, aeration improved. Objective - Vital Signs Vital signs: Vital Signs Temp 97.9 F 07/27/17 14:36 Pulse 66 07/27/17 15:35 Resp 16 07/27/17 14:36 BP 129/69 07/27/17 14:36 Pulse Ox 91 L 07/27/17 14:36 Intake & Output 07/26/17 07/27/17 07/27/17 18:59 06:59 18:59 Intake Total 100 Balance 100 Intake: Oral 100 Other: Voiding Method Toilet Toilet # Voids 2 2 3 # Bowel Movements 1 - Exam Patient sitting up in the bed comfortably, no acute distress, awake alert and oriented.. HEENT: Normocephalic. Neck is supple. Pupils reactive. Nostrils clear. Oral cavity is moist. Ears reveal no drainage. Neck reveals no JVD, carotid bruits, or thyromegaly. CHEST EXAMINATION: Trachea is central. Symmetrical expansion. Bilateral diffuse rhonchi and improving wheezing CARDIAC: Normal S1, S2 with no gallops. No murmurs ABDOMEN: Soft. Bowel sounds normal. No organomegaly. No abdominal bruits. Extremities: reveal no edema. No clubbing or cyanosis Neurologically awake, alert, oriented x3 with well-coordinated movements. No focal deficits noted Skin: No rash or skin lesions. Psychiatric: Cooperative. Nonsuicidal Musculoskeletal: No joint swelling or deformity. Normal range of motion. Microbiology 07/23/17 13:50 Blood Blood Culture - Preliminary No Growth after 96 hours 07/23/17 20:37 Sputum Gram Stain - Final 07/23/17 20:37 Sputum Sputum Culture - Final - Labs CBC & Chem 7: 07/27/17 08:13 07/27/17 08:13 Labs: Abnormal Lab Results - Last 24 Hours (Table) 07/27/17 07/27/17 07/27/17 Range/Units 07:11 08:13 08:13 MCV 101.9 H (80.0-100.0) fL MCHC 30.8 L (31.0-37.0) g/dL Chloride 95 L (98-107) mmol/L Carbon Dioxide 38 H (22-30) mmol/L Glucose 179 H (74-99) mg/dL POC Glucose (mg/dL) 105 H (75-99) mg/dL 07/27/17 Range/Units 16:53 MCV (80.0-100.0) fL MCHC (31.0-37.0) g/dL Chloride (98-107) mmol/L Carbon Dioxide (22-30) mmol/L Glucose (74-99) mg/dL POC Glucose (mg/dL) 140 H (75-99) mg/dL Microbiology - Last 24 Hours (Table) 07/23/17 13:50 Blood Culture - Preliminary Blood No Growth after 96 hours Assessment and Plan Assessment: #1 acute COPD exacerbation #2 right lower lobe pneumonia, community-acquired, failed outpatient therapy #3 active smoking DVT prophylaxis Plan: Patient will be continued on antibiotics; ceftriaxone and azithromycin, nebulized bronchodilators, IV steroids, monitoring and symptomatic treatment. Aggressive pulmonary toileting. Increase ambulation as tolerated. Discharge planning in progress tentatively for tomorrow, pending pulmonary clearance. The impression and plan of care has been dictated as directed. : I performed a history and examination of this patient, discussed the same with the dictator. I agree with the dictator's note ,documented as a scribe. Any additional findings or plans will be noted.
[2017-07-27 21:09] LABS: Glucose,Whole Blood 120 mg/dL (75-99)
[2017-07-27] MEDS: FLUTICASONE 50MCG/SPRAY NASAL 16GM EA NOSTRIL SCH (21:45)
[2017-07-27] MEDS: MONTELUKAST 10 MG TAB PO SCH (21:45)
[2017-07-28] MEDS: HEPARIN SODIUM,PORCINE 5,000 UNIT/ML 1 ML VIAL SQ SCH ×4 (01:10→20:16)
[2017-07-28] MEDS: IPRATROPIUM-ALBUTEROL 3 ML NEB INHALATION PRN (03:15)
[2017-07-28] MEDS: IPRATROPIUM-ALBUTEROL 3 ML NEB INHALATION SCH ×4 (07:22→19:33)
[2017-07-28] MEDS: BUDESONIDE 0.5 MG/2 ML NEBU INHALATION SCH ×2 (07:22→19:33)
[2017-07-28] MEDS: INSULIN ASPART 100 UNIT/ML 1 ML 10 ML VIAL SQ SCH ×4 (07:27→22:43)
[2017-07-28 07:48] LABS: Glucose,Whole Blood 79 mg/dL (75-99)
[2017-07-28] MEDS: FAMOTIDINE 20 MG TAB PO SCH (08:31)
[2017-07-28] MEDS: guaiFENesin 600 MG TABLET.ER PO SCH ×2 (08:31→20:16)
[2017-07-28] MEDS: AZITHROMYCIN 500 MG TAB PO SCH (08:31)
[2017-07-28] MEDS: predniSONE 20 MG TAB PO SCH (08:31)
[2017-07-28 12:36] LABS: Glucose,Whole Blood 98 mg/dL (75-99)
--- NOTE | 2017-07-28 14:11 | PN ---
PROGRESS NOTE DATE OF SERVICE: 07/28/2017 She continues to have shortness of breath. On physical examination, vitals are stable. She is afebrile. The chest reveals expiratory wheeze. Cardiovascular system reveals a S1, S2. Abdomen is soft. There is no pedal edema. LABS: Reviewed. IMPRESSION: 1. Severe asthma with acute exacerbation. 2. Chronic obstructive pulmonary disease. Continue bronchodilators, antibiotics and steroids. Agree with switching her to oral steroids. Check peak flows on her. Increase activity level. Depending on how she does we should make further changes to her care. MMODL / IJN: [id number] /
[2017-07-28 17:08] LABS: Glucose,Whole Blood 111 mg/dL (75-99)
[2017-07-28] MEDS: MONTELUKAST 10 MG TAB PO SCH (20:16)
[2017-07-28] MEDS: FLUTICASONE 50MCG/SPRAY NASAL 16GM EA NOSTRIL SCH (20:16)
--- NOTE | 2017-07-28 23:15 | P.PN ---
Subjective Progress Note Date: 07/28/17 Principal diagnosis: Pneumonia Patient is a 57-year-old female with a known history of COPD and active smoking trying to quit presenting to the emergency Department with cough and difficulty breathing. Symptoms have been present over the past week. Patient went to her primary care physician and was placed on antibiotics and prednisone since last Sunday. The garcía did not feel better. Patient went to her PCPs office today and was told to come to hospital due to worsening short of breath. Patient does have a cough and has had productive yellow sputum however that has dried up. Patient has nasal congestion as well. Patient did have low-grade fever a few days ago. No leg pain or leg swelling. No chest pain. Patient's chest x-ray showed right lower lobe infiltrate. 07/28/2017 Patient's breathing status is slightly improved. Otherwise patient is requiring high flow oxygen at 5 L today. Continued antibiotics and steroids will be changed to by mouth. No fever no chills. No complaints of chest pain or worsening short of breath. All other review of systems negative except the above Current medications reviewed. Objective - Vital Signs Vital signs: Vital Signs Temp 98.3 F 07/28/17 07:00 Pulse 84 07/28/17 19:45 Resp 16 07/28/17 16:00 BP 121/76 07/28/17 07:00 Pulse Ox 93 L 07/28/17 07:00 Intake & Output 07/28/17 07/28/17 07/29/17 06:59 18:59 06:59 Intake Total 200 Balance 200 Weight 72.575 kg Intake: Oral 200 Other: Voiding Method Toilet Toilet # Voids 1 2 # Bowel Movements 0 0 - Exam Patient is lying in the bed comfortably, no acute distress, awake alert and oriented.. HEENT: Normocephalic. Neck is supple. Pupils reactive. Nostrils clear. Oral cavity is moist. Ears reveal no drainage. Neck reveals no JVD, carotid bruits, or thyromegaly. CHEST EXAMINATION: Trachea is central. Symmetrical expansion. Bilateral basilar rhonchi and minimal expiratory wheezing positive CARDIAC: Normal S1, S2 with no gallops. No murmurs ABDOMEN: Soft. Bowel sounds normal. No organomegaly. No abdominal bruits. Extremities: reveal no edema. No clubbing or cyanosis Neurologically awake, alert, oriented x3 with well-coordinated movements. No focal deficits noted Skin: No rash or skin lesions. Psychiatric: Cooperative. Nonsuicidal Musculoskeletal: No joint swelling or deformity. Normal range of motion. - Labs CBC & Chem 7: 07/27/17 08:13 07/27/17 08:13 Labs: Abnormal Lab Results - Last 24 Hours (Table) 07/28/17 Range/Units 17:06 POC Glucose (mg/dL) 111 H (75-99) mg/dL Microbiology - Last 24 Hours (Table) 07/23/17 13:50 Blood Culture - Preliminary Blood No Growth after 120 hours Assessment and Plan Assessment: #1 acute asthma/COPD exacerbation #2 right lower lobe pneumonia failed outpatient therapy #3 active smoking DVT prophylaxis Plan: Patient will be continued on antibiotics ceftriaxone and azithromycin. We will continue the steroids and breathing treatments and follow closely. Steroids changed to prednisone by mouth. Chest x-ray on 07/26/2017 showed persistent right basilar infiltrate. Encourage incentive spirometry. Pulmonary is following Further recommendations based on the clinical course.
[2017-07-29] MEDS: cefTRIAXone IN SWFI 1,000 MG/10 ML SYRINGE IVP SCH ×2 (00:48→22:51)
[2017-07-29] MEDS: IPRATROPIUM-ALBUTEROL 3 ML NEB INHALATION PRN (03:13)
[2017-07-29] MEDS: IPRATROPIUM-ALBUTEROL 3 ML NEB INHALATION SCH ×4 (07:31→20:18)
[2017-07-29] MEDS: BUDESONIDE 0.5 MG/2 ML NEBU INHALATION SCH ×2 (07:31→20:18)
[2017-07-29] MEDS: INSULIN ASPART 100 UNIT/ML 1 ML 10 ML VIAL SQ SCH (08:02)
[2017-07-29] MEDS: HEPARIN SODIUM,PORCINE 5,000 UNIT/ML 1 ML VIAL SQ SCH ×3 (08:02→22:54)
[2017-07-29] MEDS: guaiFENesin 600 MG TABLET.ER PO SCH ×2 (08:03→20:11)
[2017-07-29] MEDS: FAMOTIDINE 20 MG TAB PO SCH (08:03)
[2017-07-29] MEDS: predniSONE 20 MG TAB PO SCH (08:03)
[2017-07-29] MEDS: AZITHROMYCIN 500 MG TAB PO SCH (08:03)
--- NOTE | 2017-07-29 12:03 | PN ---
PROGRESS NOTE DATE OF SERVICE: 07/29/17 She continues to have some shortness of breath but is doing better overall. On physical examination her vital signs are stable. She is afebrile. Her chest reveals decreased breath sounds. Cardiovascular reveals an S1, S2. Abdomen is soft. There is no pedal edema. IMPRESSION: Asthma with chronic obstructive pulmonary disease with acute exacerbation. Continue oral steroids. Agree with possible discharge planning with close outpatient follow up with Dr. Rawls. Continue antibiotics and aerosolized steroids with bronchodilators. Depending on how she does, we shall make further changes to her care. MMODL / IJN: [id number] /
[2017-07-29] MEDS: MONTELUKAST 10 MG TAB PO SCH (20:11)
[2017-07-29] MEDS: FLUTICASONE 50MCG/SPRAY NASAL 16GM EA NOSTRIL SCH (20:11)
--- NOTE | 2017-07-29 22:38 | P.PN ---
Subjective Progress Note Date: 07/29/17 Principal diagnosis: Pneumonia Patient is a 57-year-old female with a known history of COPD and active smoking trying to quit presenting to the emergency Department with cough and difficulty breathing. Symptoms have been present over the past week. Patient went to her primary care physician and was placed on antibiotics and prednisone since last Sunday. The garcía did not feel better. Patient went to her PCPs office today and was told to come to hospital due to worsening short of breath. Patient does have a cough and has had productive yellow sputum however that has dried up. Patient has nasal congestion as well. Patient did have low-grade fever a few days ago. No leg pain or leg swelling. No chest pain. Patient's chest x-ray showed right lower lobe infiltrate. 07/28/2017 Patient's breathing status is slightly improved. Otherwise patient is requiring high flow oxygen at 5 L today. Continued antibiotics and steroids will be changed to by mouth. No fever no chills. No complaints of chest pain or worsening short of breath. All other review of systems negative except the above 07/29/2017 Patient did improve clinically but is still requiring high flow nasal cannula oxygen at 5 L today. Patient is at 2 L at home. Continue with steroids by mouth and breathing treatments and follow-up. Anticipate to be discharged tomorrow. Current medications reviewed. Objective - Vital Signs Vital signs: Vital Signs Temp 98.0 F 07/29/17 15:00 Pulse 88 07/29/17 15:55 Resp 18 07/29/17 15:00 BP 114/62 07/29/17 15:00 Pulse Ox 93 L 07/29/17 15:00 Intake & Output 07/29/17 07/29/17 07/30/17 06:59 18:59 06:59 Intake Total 480 1100 Balance 480 1100 Intake: Oral 480 1100 Other: Voiding Method Toilet # Voids 1 4 - Exam Patient is lying in the bed comfortably, no acute distress, awake alert and oriented.. HEENT: Normocephalic. Neck is supple. Pupils reactive. Nostrils clear. Oral cavity is moist. Ears reveal no drainage. Neck reveals no JVD, carotid bruits, or thyromegaly. CHEST EXAMINATION: Trachea is central. Symmetrical expansion. Bilateral improved air entry. No rhonchi. Minimal expiratory wheezing. CARDIAC: Normal S1, S2 with no gallops. No murmurs ABDOMEN: Soft. Bowel sounds normal. No organomegaly. No abdominal bruits. Extremities: reveal no edema. No clubbing or cyanosis Neurologically awake, alert, oriented x3 with well-coordinated movements. No focal deficits noted Skin: No rash or skin lesions. Psychiatric: Cooperative. Nonsuicidal Musculoskeletal: No joint swelling or deformity. Normal range of motion. - Labs CBC & Chem 7: 07/27/17 08:13 07/27/17 08:13 Labs: Microbiology - Last 24 Hours (Table) 07/23/17 13:50 Blood Culture - Final Blood No Growth after 144 hours Assessment and Plan Assessment: #1 acute asthma/COPD exacerbation #2 right lower lobe pneumonia failed outpatient therapy #3 active smoking DVT prophylaxis Plan: Patient will be continued on antibiotics ceftriaxone and azithromycin. We will continue the steroids and breathing treatments and follow closely. Steroids changed to prednisone by mouth. Chest x-ray on 07/26/2017 showed persistent right basilar infiltrate. Encourage incentive spirometry. Pulmonary is following Further recommendations based on the clinical course.
[2017-07-30] MEDS: IPRATROPIUM-ALBUTEROL 3 ML NEB INHALATION SCH ×2 (07:37→11:51)
[2017-07-30] MEDS: BUDESONIDE 0.5 MG/2 ML NEBU INHALATION SCH (07:37)
[2017-07-30 07:41] VITALS: RESP 16
[2017-07-30] MEDS: predniSONE 20 MG TAB PO SCH (08:16)
[2017-07-30] MEDS: HEPARIN SODIUM,PORCINE 5,000 UNIT/ML 1 ML VIAL SQ SCH (08:16)
[2017-07-30] MEDS: guaiFENesin 600 MG TABLET.ER PO SCH (08:17)
[2017-07-30] MEDS: FAMOTIDINE 20 MG TAB PO SCH (08:17)
[2017-07-30] MEDS: AZITHROMYCIN 500 MG TAB PO SCH (08:17)
--- NOTE | 2017-07-30 09:55 | P.PN ---
Subjective Progress Note Date: 07/30/17 Principal diagnosis: AECOPD Patient seen and examined. Patient states she is feeling much better and would like to go home today. She does have home oxygen but is having issues getting a portable oxygen concentrator. A prescription is left on her chart and we will consult case management. Objective - Vital Signs Vital signs: Vital Signs Temp 97.6 F 07/30/17 07:00 Pulse 80 07/30/17 07:50 Resp 16 07/30/17 07:00 BP 117/72 07/30/17 07:00 Pulse Ox 93 L 07/30/17 07:35 Intake & Output 07/29/17 07/30/17 07/30/17 18:59 06:59 18:59 Intake Total 1100 500 Balance 1100 500 Intake: Oral 1100 500 Other: # Voids 4 1 - Exam Gen.: Patient is alert and oriented 3, no acute distress Cardiovascular: Regular rate and rhythm, S1/S2 Lungs: Coarse breath sounds bilaterally with diffuse expiratory wheezing - improving aeration Abdomen: Soft nontender nondistended positive bowel sounds Extremities: No edema - Labs CBC & Chem 7: 07/27/17 08:13 07/27/17 08:13 Labs: Microbiology - Last 24 Hours (Table) 07/23/17 13:50 Blood Culture - Final Blood No Growth after 144 hours Assessment and Plan Assessment: Acute on chronic hypoxic respiratory failure Acute exacerbation of COPD, very severe Right lower lobe community-acquired pneumonia Active tobacco abuse Hyperglycemia Chronic cor pulmonale Obesity Diastolic CHF Pulmonary hypertension O2 to maintain saturation greater than or equal to 90% Change to PO Prednisone Antibiotics: Azithromycin and Rocephin Duo nebs Pulmicort Sputum culture: normal bharti Pending Legionella Negative mycoplasma Influenza negative Smoking cessation is highly recommended Insulin sliding scale Gentle hydration Flutter tx Flonase Mucinex Singulair Incentive spirometry and pulmonary hygiene GI and DVT prophylaxis Rx for Pulmicort and Portable O2 concentrator placed on chart, consult case management to assist in obtaining these prior to discharge Ok to [place] from pulmonary standpoint. Patient can follow up with me this week in the pulmonary office.
[2017-07-30 13:38] VITALS: BMI 30.2
[2017-07-30 15:12] VITALS: BP 110/64; PULSE 67; TEMP 98.5
--- NOTE | 2017-07-30 23:36 | P.DS ---
Providers Date of admission: 07/23/17 14:28 Expected date of discharge: 07/30/17 Attending physician: Evens Mcfarland Consults: 07/23/17 14:28 Consult Physician Routine Consulting Provider: Barbara Rawls Consult Reason/Comments: pneumonia, copd Do you want consulting provider notified?: Yes Primary care physician: Booker Pierson Hospital Course: Discharge diagnosis #1 acute asthma/COPD exacerbation #2 right lower lobe pneumonia failed outpatient therapy #3 active smoking DVT prophylaxis Hospital course Patient is a 57-year-old female with a known history of COPD and active smoking trying to quit presenting to the emergency Department with cough and difficulty breathing. Symptoms have been present over the past week. Patient went to her primary care physician and was placed on antibiotics and prednisone since last Sunday. The garcía did not feel better. Patient went to her PCPs office today and was told to come to hospital due to worsening short of breath. Patient does have a cough and has had productive yellow sputum however that has dried up. Patient has nasal congestion as well. Patient did have low-grade fever a few days ago. No leg pain or leg swelling. No chest pain. Patient's chest x-ray showed right lower lobe infiltrate. 07/28/2017 Patient's breathing status is slightly improved. Otherwise patient is requiring high flow oxygen at 5 L today. Continued antibiotics and steroids will be changed to by mouth. No fever no chills. No complaints of chest pain or worsening short of breath. All other review of systems negative except the above 07/29/2017 Patient did improve clinically but is still requiring high flow nasal cannula oxygen at 5 L today. Patient is at 2 L at home. Continue with steroids by mouth and breathing treatments and follow-up. Anticipate to be discharged tomorrow. 07/30/2017 Patient did improve clinically. Oxygen requirement came down to 3 L with another cannula. Patient is being discharged home with current dose of steroids and antibiotics. Patient was continued on antibiotics ceftriaxone and azithromycin. continued IV steroids and breathing treatments and followed closely. Steroids changed to prednisone by mouth. Chest x-ray on 07/26/2017 showed persistent right basilar infiltrate. Encourage incentive spirometry. Patient did improve clinically and oxygen requirement came down. 3 L cannula. Patient usually at 2L at home. His neighbor discharged home to complete his antibiotic course and steroids tapering dose. Patient Condition at Discharge: Fair Plan - Discharge Summary Discharge Rx Participant: No New Discharge Prescriptions: New Azithromycin [Zithromax] 500 mg PO DAILY #5 tab Famotidine [Pepcid] 40 mg PO DAILY #60 tab Fluticasone Nasal Ideal [Flonase Nasal Ideal] 2 spray EA NOSTRIL DAILY@2100 spr guaiFENesin [Mucinex] 1,200 mg PO Q12HR tablet.er predniSONE 10 mg PO DIRECTED #30 tab Cefuroxime Axetil [Ceftin] 500 mg PO BID #10 tab Continue Budesonide-Formot 160-4.5 Mcg [Symbicort 160-4.5 Mcg Inhaler] 2 puff INHALATION RT-BID Montelukast [Singulair] 10 mg PO HS Umeclidinium Bard [Incruse Ellipta] 1 puff INHALATION RT-DAILY Ipratropium-Albuterol Nebulize [Duoneb 0.5 mg-3 mg/3 ml Soln] 3 ml PO RT-QID #0 Discontinued predniSONE See Taper PO DAILY Azithromycin [Zithromax Z-pack] See Taper PO DAILY Discharge Medication List Budesonide-Formot 160-4.5 Mcg [Symbicort 160-4.5 Mcg Inhaler] 2 puff INHALATION RT-BID 07/23/17 [History] Montelukast [Singulair] 10 mg PO HS 07/23/17 [History] Umeclidinium Bard [Incruse Ellipta] 1 puff INHALATION RT-DAILY 07/23/17 [ History] Azithromycin [Zithromax] 500 mg PO DAILY #5 tab 07/30/17 [Rx] Cefuroxime Axetil [Ceftin] 500 mg PO BID #10 tab 07/30/17 [Rx] Famotidine [Pepcid] 40 mg PO DAILY #60 tab 07/30/17 [Rx] Fluticasone Nasal Ideal [Flonase Nasal Ideal] 2 spray EA NOSTRIL DAILY@2100 spr 07/30/17 [Rx] Ipratropium-Albuterol Nebulize [Duoneb 0.5 mg-3 mg/3 ml Soln] 3 ml PO RT-QID #0 07/30/17 [Rx] guaiFENesin [Mucinex] 1,200 mg PO Q12HR tablet.er 07/30/17 [Rx] predniSONE 10 mg PO DIRECTED #30 tab 07/30/17 [Rx] Follow up Appointment(s)/Referral(s): Booker Pierson DO [Primary Care Provider] - 08/03/17 10:30 am Barbara Rawls DO [Doctor of Osteopathic Medicine] - 08/02/17 10:45 am Ambulatory/Diagnostic Orders: Complete Blood Count w/diff [LAB.AMB] Time Frame: 3 Days, Location: Determined By Patient Patient Instructions/Handouts: How to Stop Smoking (DC), Pneumonia (DC) Activity/Diet/Wound Care/Special Instructions: 2-3 l NC O2 Discharge Disposition: HOME SELF-CARE
== END 2017-07-30 16:27 | disposition home or self-care (01) | DRG 139 ==
LOC: EC 13:07 → 4MS4W 14:28
PROVIDERS: ADMIT Internal Medicine; ATTEND Internal Medicine
DX: J18.9 Pneumonia, unspecified organism (principal); J96.21 Acute and chronic respiratory failure with hypoxia; I50.32 Chronic diastolic (congestive) heart failure; J44.0 Chronic obstructive pulmonary disease with (acute) lower respiratory infection; I27.29 Other secondary pulmonary hypertension; J45.901 Unspecified asthma with (acute) exacerbation; E66.9 Obesity, unspecified; F17.210 Nicotine dependence, cigarettes, uncomplicated; I27.81 Cor pulmonale (chronic); J44.1 Chronic obstructive pulmonary disease with (acute) exacerbation; Z79.51 Long term (current) use of inhaled steroids; Z79.899 Other long term (current) drug therapy; Z80.0 Family history of malignant neoplasm of digestive organs; Z82.49 Family history of ischemic heart disease and other diseases of the circulatory system; Z99.81 Dependence on supplemental oxygen; R73.9 Hyperglycemia, unspecified
CPT/HCPCS: 36415; 71020; 80048; 80053; 82550; 82553; 83036; 83605; 84484; 85025; 85610; 85730; 86738; 87040; 87070; 87205; 87449; 87502; 93005; 94640; 94667; 94760; 96365; 96375; 99285

== ENCOUNTER → 2018-08-10 | Outpatient (CLI) | payer OTHER ==
--- NOTE | 2018-08-10 13:38 | PE ---
EXAMINATION TYPE: PET CT fusion skull to thigh DATE OF EXAM: 08/10/2018 COMPARISON: Outside chest CT report June 25, 2018 HISTORY: Solitary pulmonary nodule TECHNIQUE: Following the intravenous administration of 13.2 mCi of F-18 FDG, whole body images are p erformed from the skull base to the midthigh. Images are reviewed on the computer in the coronal, ax ial, and sagittal planes. Reconstructed rotating images are created on independent workstation and r eviewed on the computer. A noncontrast CT is performed in conjunction with the PET scan. SCAN: Initial Scan FINDINGS: SKULL BASE AND NECK: No suspicious hypermetabolic uptake is present. CHEST, MEDIASTINUM, AND HILAR REGION: There is background mild to moderate emphysematous change redem onstrated. There is oval consolidation or possible round atelectasis right middle lobe abutting media stinum with focus of calcification just above diaphragm and more trying of the shaped consolidation a nd/or atelectasis in the lingula just above diaphragm. There is additional bibasilar linear scarring and/or atelectasis. No suspicious hypermetabolic uptake is identified at these levels with the remain rafael of the thorax. ABDOMEN AND PELVIS: No suspicious hypermetabolic uptake is identified. OSSEOUS STRUCTURES: No suspicious hypermetabolic uptake is seen. OTHER CT: Bilateral breast implants are noted. May pulmonary artery measures 2.9 cm at bifurcation axial image 87, cannot exclude mild underlying pu lmonary artery hypertension. There is trace pericardial effusion. There is mild coronary artery calcification felt present. Suspect 2 mm nonobstructing calculus left kidney axial image 152. There is occasional diverticula scattered throughout the colon. There are scattered pelvic phlebolith s seen. There is multilevel spurring in the thoracolumbar spine. Facet arthropathy lower lumbar levels is pre sent. IMPRESSION: No suspicious hypermetabolic uptake is seen to suggest malignancy. Favor chronic consolid ation and/or round atelectasis with additional linear scarring and/or atelectasis in the lung bases.
== END | disposition home or self-care (01) ==
LOC: RADPETMAIN 09:31
PROVIDERS: ATTEND Internal Medicine Pulmonary Disease
DX: R91.1 Solitary pulmonary nodule (principal)
CPT/HCPCS: 78815; A9552